=== PATIENT | female | born 2005 ===

== ENCOUNTER 2023-12-25 20:00 | Emergency (ER) | payer BC ==
[~2023-12-25] VITALS: Ht 160 cm; Wt 64.1 kg
[2023-12-25 20:03] VITALS: TEMP 97.8
[2023-12-25 20:11] VITALS: BP 100/55; PULSE 80; RESP 16
[2023-12-25] MEDS ORDERED: SELE120S2 TP (20:38)
[2023-12-25] MEDS ORDERED: CLOT15CR29 TP (20:38)
== END 2023-12-25 20:49 | disposition home or self-care (01) ==
LOC: EMS 20:00
DX: B35.2 Tinea manuum (principal)
CPT/HCPCS: 99282; Z7502